=== PATIENT | female | born 1950 | race Caucasian/White ===

== ENCOUNTER 2019-01-13 15:11 | Emergency (ER) | payer MEDICARE ==
[~2019-01-13] VITALS: Ht 152.4 cm; Wt 53.5 kg
--- NOTE | 2019-01-13 15:20 | NUR ---
PT CAME INTO THE ED C/O ABDOMINAL PAIN RADIATING TO THE BACK ON AND OFF X 6 MONTHS. PT ALSO STATES SHE HAS NUMBNESS ON BILATERAL LOWER EXTREMITIES. PT AAOX4, VSS, BREATHING EVEN AND UNLABORED W/ NAD. PT CONNECTED TO THE MONITOR
[2019-01-13 17:02] LABS: HEMOGLOBIN 12.8 g/dL (11.5-14.8)
[2019-01-13 17:05] LABS: CALCIUM, SERUM 9.1 mg/dL (8.5-10.1); POTASSIUM 3.4 mmol/L (3.5-5.1)
[2019-01-13 17:06] LABS: BASOPHILS # (AUTO) 0.1 /CMM (0.0-0.2); BASOPHILS % (AUTO) 0.8 % (0.0-2.0); EOSINOPHILS % (AUTO) 1.3 % (0.0-6.0); HEMATOCRIT 39 % (33-45); LYMPHOCYTES # (AUTO) 1.9 /CMM (0.8-4.8); LYMPHOCYTES % (AUTO) 23.6 % (20.0-44.0); MEAN CORPUSCULAR HGB CONC 33 g/dl (31.0-36.0); MEAN CORPUSCULAR VOLUME 91 fL (82-100); MONOCYTES # (AUTO) 0.4 /CMM (0.1-1.30); MONOCYTES % (AUTO) 4.7 % (2.0-12.0); NEUTROPHILS # (AUTO) 5.6 /CMM (1.8-8.9); NEUTROPHILS % (AUTO) 69.6 % (43.0-81.0); PLATELET COUNT (AUTO) 335 /CMM (150-450); RED BLOOD CELL COUNT(AUTO) 4.24 MIL/uL (4.0-5.2)
--- NOTE | 2019-01-13 17:14 | NUR ---
PT TAKEN TO CT
[2019-01-13] MEDS ORDERED: POTASSIUM CHLORIDE 20 MEQ TAB.PRT.SR PO ONE ×2 (18:00→18:08)
[2019-01-13 19:46] VITALS: BP 127/87
--- NOTE | 2019-01-13 19:46 | NUR ---
Patient discharged to home in stable condition. Written and verbal after care instructions given. Patient verbalizes understanding of instruction.
== END 2019-01-13 19:47 | disposition home or self-care (01) ==
LOC: ER 15:13
DX: M54.17 Radiculopathy, lumbosacral region (principal); E87.6 Hypokalemia; E78.00 Pure hypercholesterolemia, unspecified; J45.909 Unspecified asthma, uncomplicated; F17.200 Nicotine dependence, unspecified, uncomplicated; Z60.2 Problems related to living alone; Z98.890 Other specified postprocedural states
CPT/HCPCS: 36415; 72110-TC; 72220-TC; 74018; 80048-TC; 85025-TC